=== PATIENT | female | born 1945 | race Caucasian/White ===

== ENCOUNTER 2021-03-06 16:49 | Emergency (ER) | payer MEDICARE, OTHER, SELFPAY ==
[2021-03-06 17:45] VITALS: BP 201/82; PULSE 74; RESP 18; TEMP 37.1; O2SAT 97; BMI 27.5
--- NOTE | 2021-03-06 17:53 | DI.US.S_ITS ---
PROCEDURE: US PERIPH VENOUS LOW EXTREM RT INDICATIONS: PAIN, EDEMA TECHNIQUE: Real-time imaging, as well as color and pulse Doppler interrogation, were performed of the lower extremity deep veins from the inguinal ligament to the popliteal fossa. COMPARISON: None. FINDINGS: The common femoral, femoral and popliteal veins are normally compressible, and free of intraluminal thrombus. Color and pulse Doppler demonstrate normal phasic intraluminal flow. There is normal augmentation response to distal compression maneuver. A medial popliteal Ellis's cyst is seen measuring 4.2 x 1.1 x 4.3 cm. IMPRESSION: 1. No sonographic evidence of deep venous thrombosis in the right lower extremity. 2. A moderate medial popliteal Ellis's cyst is seen. Dictated by: Munir Hong M.D. on 03/06/2021 at 19:31 Approved by: Munir Hong M.D. on 03/06/2021 at 19:32
--- NOTE | 2021-03-06 19:43 | ED_ITS ---
HPI - Extremity Problem General Chief complaint: Extremity Problem,Nontraumatic Stated complaint: Right leg is hurting,had GI bleed Time Seen by Provider: 03/06/21 19:34 Source: patient Mode of arrival: Family Vehicle Limitations: no limitations History of Present Illness HPI Narrative: The patient is a 75-year-old female with history of recent GI bleed requiring a blood transfusion admission to [facility] there least a week and a half ago presenting today with sudden onset of right knee pain. She says she was walking when she suddenly felt pain behind her knee and feels like she has pain in her calf as well. At hurts to ambulate. She has minimal swelling. No fever or chills. She says that the bleeding has stopped her hemoglobin seems to be improving. She says that she had a benign tumor removed in the and at the anastomosis she occasionally gets an ulcer and has bleeding. She is not on any anticoagulation or NSAIDs for this reason. Related Data Previous Rx's Medication Instructions Recorded hydrocodone 5 mg-acetaminophen 325 1 tab PO Q6H PRN #10 tab 03/06/21 mg tablet Allergies Allergy/AdvReac Type Severity Reaction Status Date / Time lidocaine Allergy Severe Anaphylaxis Verified 03/06/21 17:51 oxycodone Allergy Verified 03/06/21 17:55 Penicillins Allergy Verified 03/06/21 17:55 Weglvyx-Pet-Yxv Reductase Allergy Joint Pain Verified 03/06/21 17:51 Inhibitor NSAIDS (Non-Steroidal AdvReac Verified 03/06/21 17:55 Anti-Inflamma Review of Systems Review of Systems Narrative: GENERAL: Denies chills,fever HEENT: Denies throat pain RESPIRATORY: Denies dyspnea, cough, wheezing CARDIOVASCULAR: Denies chest pain, palpitations GASTROINTESTINAL: Denies nausea, vomiting MUSCULOSKELETAL: See HPI SKIN: No rash, no laceration, no pruritus NEUROLOGIC: Denies weakness, dizziness, headache, numbness 8 point review of systems is negative except for those stated above and HPI Patient History Social History Smoking Status: Never smoker Smoking Status: Never smoker alcohol intake frequency: holidays/special occasions only Alcohol type: wine Substance Use Type: does not use Exam Initial Vital Signs Initial Vital Signs: Vital Signs Temperature 98.7 F 03/06/21 17:45 Pulse Rate 74 03/06/21 17:45 Respiratory Rate 18 03/06/21 17:45 Blood Pressure 201/82 H 03/06/21 17:45 Pulse Oximetry 97 03/06/21 17:45 GENERAL: Alert well-appearing 75-year-old female appears younger than stated age CARDIOVASCULAR: peripheral pulses in tact, cap refill <2 sec RESPIRATORY: No respiratory distress, speaks in full sentences without difficulty EXTREMITIES: Normal range of motion, no clubbing or edema. Neurovascularly intact Right lower extremity no swelling or redness tenderness behind rate knee distal pedal pulse intact NEUROLOGICAL: Cranial nerves II through XII grossly intact. Normal gait and speech. SKIN: Warm, dry, no petechiae, no rashes or lesions. Scores Wells' Criteria for DVT Active Cancer (Treatment within 6 months): No Bedridden recently >3 days or major surgery within 4 weeks: Yes Calf Swelling >3cm compared to other leg: No Collateral (nonvericose) superficial veins present: No Entire leg swollen: No Localized tenderness along the deep vein system: No Pitting edema, confined to symtomatic leg: No Paralysis, paresis, or recent plaster immobilization of ext: No Previously documented DVT: No Alternative dx to DVT as likely or more likely: No Wells' criteria for DVT: 1 Course Orders Ordered: Discontinued Medications Hydrocodone Bitart/Acetaminophen (Hydrocodone/Acet 5/325 Prepack) 1 bottle MISC SEEINSTR ONE Stop: 03/06/21 19:52 Last Admin: 03/06/21 20:08 Dose: 1 bottle Documented by: JOSE JUAN Vital Signs Vital signs: Vital Signs - 8 hr 03/06/21 17:45 Temperature 98.7 F Pulse Rate 74 Respiratory Rate 18 Blood Pressure 201/82 H Pulse Oximetry 97 MDM - Extremity (Nontraumatic) Imaging Data US - DVT: Radiologist's Impression: PROCEDURE: US PERIPH VENOUS LOW EXTREM RT INDICATIONS: PAIN, EDEMA TECHNIQUE: Real-time imaging, as well as color and pulse Doppler interrogation, were performed of the lower extremity deep veins from the inguinal ligament to the popliteal fossa. COMPARISON: None. FINDINGS: The common femoral, femoral and popliteal veins are normally compressible, and free of intraluminal thrombus. Color and pulse Doppler demonstrate normal phasic intraluminal flow. There is normal augmentation response to distal compression maneuver. A medial popliteal Ellis's cyst is seen measuring 4.2 x 1.1 x 4.3 cm. IMPRESSION: 1. No sonographic evidence of deep venous thrombosis in the right lower extremity. 2. A moderate medial popliteal Ellis's cyst is seen. Dictated by: Munir Hong M.D. on 03/06/2021 at 19:31 Approved by: Munir Hong M.D. on 03/06/2021 at 19:32 MDM Narrative Medical decision making narrative: The patient had a sudden onset posterior knee pain she really has no swelling. DVT study is negative I have low suspicion for DVT patient is found to have a Ellis's cyst, which may be the cause of her pain. She is not wanting anything now for pain but may need something to help her s leep. She actually is ambulatory in the ED without any difficulty. She and her are anxious to get home and catch a ferry. Discharge Plan Departure Patient Disposition: Home Clinical Impression: Cyst, Ellis's knee Qualifiers: Laterality: right Qualified Code(s): M71.21 - Synovial cyst of popliteal space [Ellis], right knee Instructions: DI for Ellis Cyst Activity Restrictions/Additional Instructions: *You have been diagnosed with ellis cyst *What to do: It was found that you have a Ellis's cyst. At this time ultrasound does not show that you have a blood clot. However I do recommend a compression socks, compression dressing to help with pain. He may need a repeat ultrasound of the whole leg in a few days if you are continuing to have pain and swelling. *Continue to take medications as directed [place] 1 tablet every 4-6 hours if needed for pain *Follow up with your primary care provider in 2-3 days *Return to ER if you should have increasing pain, swelling, red or any new, worsening or concerning symptoms CONTROLLED SUBSTANCE DISCHARGE (Narcotoic/benzodiazepine/Flexeril/Phenergan) 1. You have been prescribed narcotic medications, it does have acetaminophen/Tylenol/paracetamol in it, DO NOT TAKE MORE THAN 4,00mg in 24 hours of Tylenol. TRAMADOL DOES NOT CONTAIN TYLENOL 2. Please understand that we cannot provide further refills of narcotics, benzodiazepines or controlled substances through the ED and her pain management will need to be through your provider. 3. While on these medications you cannot drive or operate heavy machinery. 4. You cannot sign legal documents or perform any duties such as this. 5. As long as you're taking opiate pain medications he should also be taking a stool softener such as Colace, Dulcolax, MiraLAX or prune juice, to help avoid constipation. Prescriptions: New hydrocodone-acetaminophen 5-325 mg tablet 1 tab PO Q6H PRN (Reason: pain) Qty: 10 RF: 0
[2021-03-06] MEDS: HYDROCODONE/ACET 5/325 PREPACK 1 BOTTLE MISC (20:08)
== END 2021-03-06 20:15 | disposition home or self-care (01) ==
PROVIDERS: Emergency Provider Emergency Medicine
DX: M71.21 Synovial cyst of popliteal space [Baker], right knee (principal)
CPT/HCPCS: 93971; 99281; 99283

== ENCOUNTER → 2022-04-08 09:53 | Outpatient (CLI) | payer MEDICARE, OTHER, SELFPAY ==
--- NOTE | 2022-04-08 | DI.CT.S_ITS ---
PROCEDURE: CT ANGIO HEAD AND NECK INDICATIONS: 76-year-old female status post left carotid stenting TECHNIQUE: Pre-contrast 4.5 mm thick sections acquired from the foramen magnum to the vertex. After the administration of intravenous contrast, 1 mm thick sections acquired from the aortic arch through the [place] of [place]. Post-contrast 4.5 mm thick sections then re-acquired from the foramen magnum to the vertex. For radiation dose reduction, the following was used: automated exposure control, adjustment of mA and/or kV according to patient size. COMPARISON: None. FINDINGS: Noncontrast CT Brain: Cerebrum, cerebellum and brainstem: Atrophy and mild white matter chronic ischemic change. No evidence of intracranial hemorrhage, mass effect or extra-axial fluid collections. No white matter disease. Chen-white distinction is well preserved throughout the exam. Ventricles: Appropriate size and position. No evidence of hydrocephalus. Skull base: The bony sella, pituitary gland and infundibulum are unremarkable. Posterior fossa and cerebellum are unremarkable. Visualized portions of the external auditory canals and tympanic cavity are within normal limits. Calvarium and Scalp: No scalp soft tissue swelling. The underlying calvarium is intact without skull fracture or lytic lesion. Paranasal Sinuses: Unremarkable as visualized. No acute sinusitis. Mastoids: Unremarkable as visualized. No mastoid effusion. Cerebral CT Angiogram: Internal carotid arteries: Mild calcified atherosclerotic plaque noted involving the cavernous portions of both internal carotid arteries. No significant stenosis, aneurysm or occlusion. Anterior cerebral arteries: Unremarkable. No significant stenosis. No occlusion. No aneurysm. Middle cerebral arteries: Unremarkable. No significant stenosis. No occlusion. No aneurysm. 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 The P2 segment is supplied by a widely patent posterior communicating artery. Remainder of the distal vasculature unremarkable. Left BUGGY LADLE TENDER is diminutive but patent Basilar artery: Unremarkable. No significant stenosis. No occlusion. No aneurysm. Vertebral arteries: Unremarkable. No significant stenosis. No dissection or occlusion. Dural venous sinuses: Unremarkable given phase of enhancement. Other: Arterial phase brain parenchyma unremarkable. Neck CT Angiogram: Internal carotid arteries: Left proximal ICA stent noted in place. There is waisting in the mid stent resulting in 20% stenosis by NASCET criteria. Atherosclerotic plaque in the proximal right ICA present without stenosis. Common carotid arteries: Unremarkable. No significant stenosis. No dissection or occlusion. External carotid arteries: Unremarkable. No occlusion. Vertebral arteries: Unremarkable. No significant stenosis. No dissection or occlusion. Aortic arch and mediastinum: Atherosclerotic vascular calcification noted. Other: Arterial phase neck soft tissue within normal limits. Both lung apices are clear. Multilevel degenerative disc disease and arthropathy in the cervical spine. IMPRESSION: 1. Patent left ICA stent with approximately 20% stenosis in the mid stent utilizing NASCET criteria. 2. 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 Moderate atrophy and mild white matter chronic ischemic change without intracranial hemorrhage or mass effect. Note: Any reported proximal ICA stenosis was calculated using NASCET guidelines. Approved by: Nicholas Buck M.D. on 04/08/2022 at 15:16
[2022-04-08 11:46] LABS: BUN Creatinine Ratio 23.8 (6-22); Blood Urea Nitrogen 19 mg/dL (7-17); Estimated Glomerular Filt Rate > 60 mL/min (>60)
== END ==
PROVIDERS: PCP Internal Medicine; Referring Provider Surgery Vascular Surgery; Visit Provider Surgery Vascular Surgery
DX: I65.22 Occlusion and stenosis of left carotid artery (principal)
CPT/HCPCS: 36415; 70496; 70498; 82565; 84520; Q9967